=== PATIENT | female | born 1970 | race Caucasian/White ===

== ENCOUNTER 2019-09-15 18:34 | Emergency (ER) | payer BC, OTHER ==
[2019-09-15] MEDS ORDERED: Lidocaine 1% 30 ML SDV INJECT ONE (18:46)
[2019-09-15] MEDS ORDERED: Bacitracin Oint 1 GM U/D Packet TOP ONE (19:10)
--- NOTE | 2019-09-15 19:33 | CR ---
PROCEDURE INFORMATION: Exam: XR Left Foot Exam date and time: 09/15/2019 7:13 PM Age: 49 years old Clinical indication: Pain; Foot; Left; Additional info: Dropped log on her left foot TECHNIQUE: Imaging protocol: XR Left foot. Views: 1 or 2 views. COMPARISON: No relevant prior studies available. FINDINGS: Bones/joints: Normal. Soft tissues: Soft tissue swelling and gas over the region of the 1st metatarsal. With history of trauma, this likely represents an area of laceration injury. There is no foreign body. IMPRESSION: 1. Soft tissue swelling and gas over the 1st metatarsal region suggesting a laceration or penetrating injury. 2. No foreign body. 3. No fracture.
--- NOTE | 2019-09-15 19:38 | EDM.PDOC ---
ED HPI GENERAL MEDICAL PROBLEM - General Chief Complaint: Lower Extremity Injury/Pain Stated Complaint: piece of wood fell on left foot Time Seen by Provider: 09/15/19 19:00 Source of Information: Reports: Patient, RN, RN Notes Reviewed History Limitations: Reports: No Limitations - History of Present Illness INITIAL COMMENTS - FREE TEXT/NARRATIVE: Patient presents to ER with complaint of laceration and pain to the left foot. Patient states she was helping her move logs and dropped log on her foot. Patient denies numbness or tingling. 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 Onset: Today, Sudden Duration: Constant Location: Reports: Lower Extremity, Left Quality: Reports: Throbbing Severity: Moderate Improves with: Reports: None Worsens with: Reports: Other (weight bearing) Associated Symptoms: Reports: No Other Symptoms Left Foot Pain Score (Numeric/FACES): 6 - Related Data Allergies Allergy/AdvReac Type Severity Reaction Status Date / Time No Known Allergies Allergy Verified 09/15/19 18:51 Home Meds: Home Meds Fexofenadine/Pseudoephedrine [Annie-D 12 Hour Tablet] 1 each PO DAILY [History] Past Medical History HEENT History: Reports: Impaired Vision, Other (See Below) Other HEENT History: wears glasses Cardiovascular History: Reports: None Respiratory History: Reports: None Gastrointestinal History: Reports: None Genitourinary History: Reports: None PELLETIZER History: Reports: None Musculoskeletal History: Reports: None Neurological History: Reports: None Psychiatric History: Reports: None Endocrine/Metabolic History: Reports: None Hematologic History: Reports: None Immunologic History: Reports: None Oncologic (Cancer) History: Reports: None Dermatologic History: Reports: None Social & Family History - Tobacco Use Smoking Status *Q: Never Smoker - Recreational Drug Use Recreational Drug Use: No Review of Systems - Review of Systems Review Of Systems: Comprehensive ROS is negative, except as noted in HPI. ED EXAM, GENERAL - Physical Exam Exam: See Below Exam Limited By: No Limitations General Appearance: Alert, WD/WN, Mild Distress Eye Exam: Bilateral Eye: EOMI, Normal Inspection Ears: Normal External Exam, Hearing Grossly Normal Nose: Normal Inspection Throat/Mouth: Normal Inspection, Normal Voice, No Airway Compromise Head: Atraumatic, Normocephalic Neck: Normal Inspection, Supple, Non-Tender, Full Range of Motion Respiratory/Chest: No Respiratory Distress, Lungs Clear, Normal Breath Sounds, No Accessory Muscle Use, Chest Non-Tender Cardiovascular: Normal Peripheral Pulses, Regular Rate, Rhythm, No Edema, No Gallop, No JVD, No Murmur, No Rub Peripheral Pulses: 2+: Dorsalis Pedis (L), Dorsalis Pedis (R) GI/Abdominal: Normal Bowel Sounds, Soft, Non-Tender (Female) Exam: Deferred Rectal (Female) Exam: Deferred Back Exam: Normal Inspection, Full Range of Motion, NT Extremities: Other (Left foot swollen, ecchymosis developing, laceration, painful to move or bear weight) Neurological: Alert, Oriented, CN II-XII Intact, Normal Cognition, Normal Reflexes, No Motor/Sensory Deficits Psychiatric: Normal Affect, Normal Mood Skin Exam: Warm, Dry, Other (9cm laceration across left foot ) Lymphatic: No Adenopathy ED TRAUMA EXTREMITY PROCEDURES - Laceration/Wound Repair Left Dorsal Foot Lac/Wound Length In cm: 9 Appearance: Subcutaneous Distal NVT: Neuro & Vascular Intact Anesthetic Type: Local Local Anesthesia - Lidocaine (Xylocaine): 1% Plain Local Anesthetic Volume: Other (15) Skin Prep: Chlorhexidine (Hibiciens) Exploration/Debridement/Repair: Wound Explored, In a Bloodless Field, Explored to Base, No Foreign Material Found Closed With: Sutures Suture Size: 4-0 # of Sutures: 11 Suture Type: Nylon, Interrupted Drain Placement: No Sterile Dressing Applied: Nurse Tetanus Status Addressed: Yes Complications: No Course - Vital Signs Last Recorded V/S: Last Vital Signs Temp 96.8 F L 09/15/19 18:37 Pulse 82 09/15/19 18:37 Resp 16 09/15/19 18:37 BP 158/84 H 09/15/19 18:37 Pulse Ox 100 09/15/19 18:37 - Orders/Labs/Meds Meds: Medications Discontinued Medications Generic Name Dose Route Start Last Admin Trade Name Freq PRN Reason Stop Dose Admin Bacitracin 1 dose 09/15/19 19:10 09/15/19 20:07 Bacitracin Oint 1 Gm TOP 09/15/19 19:11 1 dose ONETIME ONE Administration Lidocaine HCl 30 ml 09/15/19 18:46 09/15/19 20:07 Xylocaine-Mpf 1% INJECT 09/15/19 18:47 30 ml ONETIME ONE Administration - Radiology Interpretation Free Text/Narrative:: Left foot xray: FINDINGS: Bones/joints: Normal. Soft tissues: Soft tissue swelling and gas over the region of the 1st metatarsal. With history of trauma, this likely represents an area of laceration injury. There is no foreign body. IMPRESSION: 1. Soft tissue swelling and gas over the 1st metatarsal region suggesting a laceration or penetrating injury. 2. No foreign body. 3. No fracture. Thank you for allowing us to participate in the care of your patient. Dictated and Authenticated by: Malik Puckett MD 09/15/2019 7:33 PM Central Time ([place] & [place]) See rad report Departure - Departure Time of Disposition: 20:38 Disposition: Home, Self-Care 01 Condition: Fair Clinical Impression: Laceration Contusion of foot Qualifiers: Encounter type: initial encounter Laterality: left Qualified Code(s): S90.32XA - Contusion of left foot, initial encounter - Discharge Information *PRESCRIPTION DRUG MONITORING PROGRAM REVIEWED*: No *COPY OF PRESCRIPTION DRUG MONITORING REPORT IN PATIENT SHAHID: No Instructions: How to Use Cold Therapy, [id number], Foot Contusion, Easy-to- Read, Laceration Care, Adult, [id number], Sutures, [place], or Adhesive Wound Closure, [id number] Referrals: Cristina Jackson NP [Primary Care Provider] - Forms: ED Department Discharge Additional Instructions: Elevate the foot when possible Where orthotic shoe for protection Monitor for signs of infection (redness, warmth, drainage, fever or chills) Follow up with your primary care facility in 7-10 days for suture removal Sepsis Event Note - Evaluation Sepsis Screening Result: No Definite Risk - Focused Exam Date Exam was Performed: 09/17/19 Time Exam was Performed: 02:26
== END 2019-09-15 20:49 | disposition home or self-care (01) ==
LOC: DL.ED 18:34
DX: S91.312A Laceration without foreign body, left foot, initial encounter (principal); W20.8XXA Other cause of strike by thrown, projected or falling object, initial encounter
CPT/HCPCS: 12004; 73620; 99283; J2001